=== PATIENT | male | born 1990 | race Caucasian/White ===

== ENCOUNTER 2016-12-27 19:14 | Emergency (ER) | payer MEDICAID ==
[~2016-12-27] VITALS: Ht 182.9 cm; Wt 66.7 kg
[~2016-12-27 19:14] MED LIST: NKM
[2016-12-27 19:35] VITALS: BP 131/86
[2016-12-27] MEDS ORDERED: ZOFRAN ODT4 MG ORAL (19:43)
[2016-12-27] MEDS ORDERED: PEPCID40 MG PO (19:43)
[2016-12-27] MEDS ORDERED: Lidocaine 2% Visc 15ml soln ORAL ONE (19:45)
[2016-12-27] MEDS ORDERED: Mylanta II UD 30ml ORAL ONE (19:45)
[2016-12-27 20:05] VITALS: BP 131/86
--- NOTE | 2017-01-12 15:27 | Emergency Room Report ---
History of Present Illness General Chief Complaint: Abdominal Pain Source: Patient Present Illness HPI 26YOM with bloating, abd cramps, nausea for 2 days Denies alvino abd pain,vomiting, diarrhea, fever/chills, urinary complaints Denies previous surgery Feels well otherwise No other medical complaints Allergies: Coded Allergies: SULFAMETHOXAZOLE (Unverified Allergy, Unknown, 09/27/15) TRIMETHOPRIM (Unverified Allergy, Unknown, 09/27/15) Patient History Past Medical History: none Past Surgical History: none Pertinent Family History: none Social History: Denies: smoking, alcohol use, drug use Immunizations: UTD Reviewed Nursing Documentation: PMH: Agreed, PSxH: Agreed Nursing Documentation-PMH Past Medical History: No Stated History Review of Systems All Other Systems: negative except mentioned in HPI Physical Exam Vital Signs Date Time Temp Pulse Resp B/P (MAP) Pulse Ox O2 Delivery O2 Flow Rate FiO2 12/27/16 19:19 98.4 72 18 131/86 98 Room Air Sp02 EP Interpretation: reviewed, normal General Appearance: normal inspection, well appearing, no apparent distress, alert, GCS 15, non-toxic Head: normocephalic, atraumatic Eyes: bilateral eye PERRL, bilateral eye EOMI ENT: normal ENT inspection, hearing grossly normal, normal voice Neck: normal inspection, full range of motion, supple, no bony tend Respiratory: normal inspection, lungs clear, normal breath sounds, no respiratory distress, no retraction, no wheezing Cardiovascular #1: regular rate, rhythm, no edema Gastrointestinal: normal inspection, normal bowel sounds, non tender, soft, no mass, no guarding, no hernia Genitourinary: no CVA tenderness Musculoskeletal: normal inspection, back normal, normal range of motion, Will' s Sign negative Neurologic: normal inspection, alert, responsive, speech normal Psychiatric: normal inspection, judgement/insight normal, mood/affect normal Skin: normal inspection, normal color, no rash Medical Decision Making Diagnostic Impression: Primary Impression: Viral illness ER Course 26YOM with viral illness Non-tender abdomen on serial exam Improved with GI cocktail Rx pepcid Close PMD followup DC home Last Vital Signs Date Time Temp Pulse Resp B/P (MAP) Pulse Ox O2 Delivery O2 Flow Rate FiO2 12/27/16 20:05 98.4 72 18 131/86 98 Room Air Status: improved Disposition: HOME, SELF-CARE Condition: Improved Scripts Famotidine (PEPCID) 40 Mg Tablet 40 MG PO DAILY for 7 Days, #14 TAB 0 Refills Prov: ARNAUD LYN M.D. 12/27/16 Ondansetron Odt* (ZOFRAN ODT*) 4 Mg Tab.rapdis 4 MG ORAL Q12H Y for Nausea & Vomiting for 7 Days, #14 TAB 0 Refills Prov: ARNAUD LYN M.D. 12/27/16 Referrals: [facility],REFERRING (PCP) Patient Instructions: Viral Gastroenteritis, Adult Additional Instructions: - Drink water/misbah sveta ONLY today - Start bland food tomorrow, crackers, chicken broth ONLY until you feel completel better - Take Pepcid 40mg each morning for 7 days or until you feel better - Take zofran as needed for nausea - Follow up with your PRIMARY DOCTOR in 2-3 days as needed - Return to ER for severe abdominal pain located on ONE side of your abdomen, fever/chills, vomiting that do NOT resolve with medication ARNAUD LYN M.D. Jan 12, 2017 15:27
== END 2016-12-27 20:05 | disposition home or self-care (01) ==
LOC: EMR 19:56
DX: B34.9 Viral infection, unspecified (principal); R11.0 Nausea; Z88.2 Allergy status to sulfonamides
CPT/HCPCS: 99283

== ENCOUNTER 2016-12-29 15:15 | Emergency (ER) | payer MEDICAID ==
[~2016-12-29] VITALS: Ht 182.9 cm; Wt 68.0 kg
[~2016-12-29 15:15] MED LIST changes: +PEPCID40 MG PO; +ZOFRAN ODT4 MG ORAL
[2016-12-29 15:26] VITALS: BP 134/86
--- NOTE | 2016-12-29 15:49 | Emergency Room Report ---
History of Present Illness General Chief Complaint: Abdominal Pain Source: Patient Present Illness HPI 26-year-old male presents to the emergency department complaining of 8/10 in severity crampy her lower midline abdominal pain that he reports is worse after urinating, localized and does not radiate. Patient denies swelling, dysuria, hematuria, fevers, chills or back pain. Patient reports mild constipation last bowel movement was yesterday however he reports moderate straining. Patient states that approximately one week ago he was diagnosed with viral gastroenteritis. He denies nausea, vomiting, diarrhea, blood in the stools are dark tarry stools. he denies testicular pain/swelling, penile lesions or penile discharge. Denies recent unprotected intercourse or possible exposure to STI. Denies rashes or swollen tender lymph nodes. Allergies: Coded Allergies: SULFAMETHOXAZOLE (Unverified Allergy, Unknown, 09/27/15) TRIMETHOPRIM (Unverified Allergy, Unknown, 09/27/15) Patient History Past Medical History: see triage record Past Surgical History: none Pertinent Family History: none Immunizations: UTD Reviewed Nursing Documentation: PMH: Agreed, PSxH: Agreed Nursing Documentation-PMH Past Medical History: No Stated History Review of Systems All Other Systems: negative except mentioned in HPI Physical Exam Vital Signs Date Time Temp Pulse Resp B/P (MAP) Pulse Ox O2 Delivery O2 Flow Rate FiO2 12/29/16 15:20 97.9 83 18 134/86 100 Room Air Sp02 EP Interpretation: reviewed, normal General Appearance: no apparent distress, alert, GCS 15, non-toxic Head: normocephalic, atraumatic Eyes: bilateral eye normal inspection, bilateral eye PERRL ENT: hearing grossly normal, normal voice Neck: full range of motion Respiratory: lungs clear, normal breath sounds, speaking full sentences Cardiovascular #1: regular rate, rhythm Gastrointestinal: normal bowel sounds, non tender - mild lower middle abdominal TTP on exam, no RLQ tenderness. no LAD, soft, no guarding Rectal: deferred Genitourinary: normal inspection, no CVA tenderness, penis normal, scrotum normal Musculoskeletal: back normal, gait/station normal, normal range of motion, non- tender Neurologic: alert, oriented x3, responsive, motor strength/tone normal, sensory intact, speech normal Skin: normal color, no rash, warm/dry, well hydrated Lymphatic: no adenopathy Medical Decision Making PA Attestation Dr. Mills is my supervising Physician whom patient management has been discussed with. Diagnostic Impression: Primary Impression: UTI (urinary tract infection) Qualified Codes: N30.00 - Acute cystitis without hematuria ER Course 26-year-old male presents to the emergency department complaining of 8/10 in severity crampy her lower midline abdominal pain that he reports is worse after urinating, localized and does not radiate. Patient denies swelling, dysuria, hematuria, fevers, chills or back pain. Patient reports mild constipation last bowel movement was yesterday however he reports moderate straining. Patient states that approximately one week ago he was diagnosed with viral gastroenteritis. He denies nausea, vomiting, diarrhea, blood in the stools are dark tarry stools. he denies testicular pain/swelling, penile lesions or penile discharge. Denies recent unprotected intercourse or possible exposure to STI. Denies rashes or swollen tender lymph nodes. Ddx considered but are not limited to Diverticulitis, acute appy, diarrhea,UC, PUD, GE, pancreatitis, kidney stone, UTI Vital signs: are WNL, pt. is afebrile H&PE are most consistent with abdominal pain , no clinical evidence to suggest acute abdomen, or infection. ORDERS: -UA: few bacteria in the presence of elevated leuks and RBC's, with no squamous epithelial cells, consistent with cystitis and UTI. ED INTERVENTIONS: -declines prophylactic treatment for G & C/urethritis. -d/w pt. that he will be treated as an outpatient, and to follow up with PMD in 3-5 days. pt. given ED return precautions for worsening or new symptoms. DISCHARGE: At this time pt. is stable for d/c to home. Will provide printed patient care instructions, and any necessary prescriptions. Care plan and follow up instructions have been discussed with the patient prior to discharge. Labs Test 12/29/16 15:55 Urine Color Yellow Urine Appearance Clear Urine pH 6.5 (4.5-8.0) Urine Specific [place] 1.010 (1.005-1.035) Urine Protein 1+ (NEGATIVE) Urine Glucose (UA) Negative (NEGATIVE) Urine Ketones 4+ (NEGATIVE) Urine Occult Blood Negative (NEGATIVE) Urine Nitrite Negative (NEGATIVE) Urine Bilirubin Negative (NEGATIVE) Urine Urobilinogen 1 MG/DL (0.0-1.0) Urine Leukocyte Esterase 1+ (NEGATIVE) Urine RBC 0-2 /HPF (0 - 0) Urine WBC 2-4 /HPF (0 - 0) Urine Squamous Epithelial Cells None /LPF (NONE/OCC) Urine Bacteria Few /HPF (NONE) Last Vital Signs Date Time Temp Pulse Resp B/P (MAP) Pulse Ox O2 Delivery O2 Flow Rate FiO2 12/29/16 15:26 97.9 18 134/86 100 Room Air 12/29/16 15:20 83 Disposition: HOME, SELF-CARE Condition: Stable Scripts Phenazopyridine Hcl* (PYRIDIUM*) 200 Mg Tablet 200 MG ORAL THREE TIMES A DAY for 3 Days, #9 TAB 0 Refills Prov: Jemma Pascual 12/29/16 Cephalexin* (KEFLEX*) 500 Mg Capsule 500 MG ORAL EVERY 12 HOURS for 7 Days, #14 CAP 0 Refills Prov: Jemma Pascual 12/29/16 Patient Instructions: Urinary Tract Infection, [id number] Additional Instructions: Take medications as directed. Follow up with a Primary Care Provider in 3-5 days, even if your symptoms have resolved. --Please review list of primary care clinics, if you do not already have a primary care provider Return sooner to ED if new symptoms occur, or current symptoms become worse. Pyridium will cause your urine to change color (Red/[place]), this is a normal side effect of the medication. - Please note that this Emergency Department Report was dictated using [employer] storage clerk technology software, occasionally this can lead to erroneous entry secondary to interpretation by the dictation equipment. Jemma Pascual Dec 29, 2016 15:49
[2016-12-29 16:17] LABS: APPEARANCE,URINE CLEAR; KETONES,URINE 4+ (NEGATIVE); LEUKOCYTE ESTERASE ,URINE 1+ (NEGATIVE); NITRITE,URINE NEGATIVE (NEGATIVE); PH,URINE 6.5 (4.5-8.0); PROTEIN,URINE 1+ (NEGATIVE); UROBILINOGEN,URINE 1 MG/DL (0.0-1.0)
[2016-12-29 16:48] LABS: RBC,URINE 0-2 /HPF (0 - 0)
[2016-12-29 16:49] LABS: BACTERIA,URINE FEW /HPF
[2016-12-29] MEDS ORDERED: CEPHALEXIN500 MG ORAL (16:54)
[2016-12-29] MEDS ORDERED: PHENAZOPYRIDIN200 MG ORAL (16:54)
[2016-12-29 17:05] VITALS: BP 135/78
[2016-12-29 19:57] VITALS: BP 134/86
== END 2016-12-29 17:08 | disposition home or self-care (01) ==
LOC: EMR 16:00
DX: N39.0 Urinary tract infection, site not specified (principal); Z88.2 Allergy status to sulfonamides; Z88.1 Allergy status to other antibiotic agents
CPT/HCPCS: 81003; 99284

== ENCOUNTER 2017-04-01 20:14 | Emergency (ER) | payer MEDICAID ==
[~2017-04-01] VITALS: Ht 182.9 cm; Wt 68.0 kg
[~2017-04-01 20:14] MED LIST changes: +CEPHALEXIN500 MG ORAL; +PHENAZOPYRIDIN200 MG ORAL
[2017-04-01 21:10] LABS: APPEARANCE,URINE CLEAR; BILIRUBIN, URINE NEGATIVE (NEGATIVE); COLOR,URINE PALE YELLOW; GLUCOSE, URINE (UA) NEGATIVE (NEGATIVE); KETONES,URINE NEGATIVE (NEGATIVE); LEUKOCYTE ESTERASE ,URINE 2+ (NEGATIVE); NITRITE,URINE NEGATIVE (NEGATIVE); PH,URINE 6.5 (4.5-8.0); PROTEIN,URINE NEGATIVE (NEGATIVE); UROBILINOGEN,URINE NORMAL MG/DL (0.0-1.0)
[2017-04-01] MEDS ORDERED: ROBAXIN-750750 MG PO (21:19)
[2017-04-01] MEDS ORDERED: IBUPROFEN600 MG ORAL (21:19)
[2017-04-01] MEDS ORDERED: KEFLEX500 MG ORAL (21:28)
[2017-04-01 21:58] VITALS: BP 111/76
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
== END 2017-04-01 21:58 | disposition home or self-care (01) ==
LOC: EMR 21:47
DX: N39.0 Urinary tract infection, site not specified (principal); M54.6 Pain in thoracic spine; R21 Rash and other nonspecific skin eruption; Z88.2 Allergy status to sulfonamides
CPT/HCPCS: 81001; 87086; 99284

== ENCOUNTER 2017-10-03 13:18 | Emergency (ER) | payer MEDICAID ==
[~2017-10-03] VITALS: Ht 182.9 cm; Wt 68.5 kg
[~2017-10-03 13:18] MED LIST changes: +IBUPROFEN600 MG ORAL; +KEFLEX500 MG ORAL; +ROBAXIN-750750 MG PO
[2017-10-03] MEDS ORDERED: Azithromycin 250mg tab ORAL ONE (13:45)
[2017-10-03] MEDS ORDERED: Lidocaine 1% MPF 10mg/ml 5ml INJ ONE (13:45)
[2017-10-03] MEDS: Phenazopyridine 200mg tab ORAL ONE ×2 (14:09→14:12)
--- NOTE | 2017-10-03 14:38 | Emergency Room Report ---
History of Present Illness General Chief Complaint: Male Urogenital Problems Source: Patient Present Illness HPI 27-year-old male presents to the emergency department complaining of suprapubic burning sensation with intermittent low back cramping presenting several days after having unprotected intercourse. Patient denies penile discharge he denies testicular pain or tenderness. Patient denies external genital lesions, swollen tender lymph nodes, joint pain, nausea, vomiting, fevers chills. Patient denies eye symptoms. Patient would like to be treated for STDs. Patient denies constipation or diarrhea he denies trauma or fall. Reports significant urinary urgency and frequency he denies hematuria or dysuria. Allergies: Coded Allergies: SULFAMETHOXAZOLE (Unverified Allergy, Unknown, 09/27/15) TRIMETHOPRIM (Unverified Allergy, Unknown, 09/27/15) Patient History Past Medical History: see triage record Past Surgical History: none Pertinent Family History: none Reviewed Nursing Documentation: PMH: Agreed; PSxH: Agreed Nursing Documentation-PMH Past Medical History: No History, Except For Review of Systems All Other Systems: negative except mentioned in HPI Physical Exam Vital Signs Date Time Temp Pulse Resp B/P (MAP) Pulse Ox O2 Delivery O2 Flow Rate FiO2 10/03/17 13:23 98.0 78 16 132/84 98 Room Air 98.1 Sp02 EP Interpretation: reviewed, normal General Appearance: no apparent distress, alert, GCS 15, non-toxic Head: normocephalic, atraumatic ENT: hearing grossly normal, normal voice Neck: full range of motion Respiratory: lungs clear, normal breath sounds, speaking full sentences Cardiovascular #1: regular rate, rhythm Gastrointestinal: normal bowel sounds, non tender, soft Rectal: deferred Genitourinary: normal inspection, no CVA tenderness, deferred - genital exam deferred by pt. reports no d/c, lesions or LAD Musculoskeletal: back normal, gait/station normal, normal range of motion, non- tender Neurologic: alert, oriented x3, responsive, motor strength/tone normal, sensory intact, normal gait, speech normal, grossly normal Psychiatric: judgement/insight normal Skin: normal color, no rash, warm/dry, well hydrated Medical Decision Making PA Attestation Dr. Martin is my supervising Physician whom patient management has been discussed with. Diagnostic Impression: Primary Impression: Contact with or exposure to venereal diseases Additional Impression: Urinary frequency ER Course 27-year-old male presents to the emergency department complaining of suprapubic burning sensation with intermittent low back cramping presenting several days after having unprotected intercourse. Patient denies penile discharge he denies testicular pain or tenderness. Patient denies external genital lesions, swollen tender lymph nodes, joint pain, nausea, vomiting, fevers chills. Patient denies eye symptoms. Patient would like to be treated for STDs. Patient denies constipation or diarrhea he denies trauma or fall. Reports significant urinary urgency and frequency he denies hematuria or dysuria. Ddx considered but are not limited to UTi , Urethritis, LGV, STI, Stone, Cystitis, prostatitis Vital signs: are WNL, pt. is afebrile H&PE are most consistent with Urethritis ORDERS: - UA :Unremarkable ED INTERVENTIONS: -250mg Rocephin IM -1 Gram Azithromycin PO DISCHARGE: At this time pt. is stable for d/c to home. Will provide printed patient care instructions, and any necessary prescriptions. Care plan and follow up instructions have been discussed with the patient prior to discharge. Labs Test 10/03/17 13:20 Urine Color Pale yellow Urine Appearance Clear Urine pH 6 (4.5-8.0) Urine Specific [place] 1.015 (1.005-1.035) Urine Protein Negative (NEGATIVE) Urine Glucose (UA) Negative (NEGATIVE) Urine Ketones Negative (NEGATIVE) Urine Occult Blood Negative (NEGATIVE) Urine Nitrite Negative (NEGATIVE) Urine Bilirubin Negative (NEGATIVE) Urine Urobilinogen Normal MG/DL (NORMAL) Urine Leukocyte Esterase Negative (NEGATIVE) Last Vital Signs Date Time Temp Pulse Resp B/P (MAP) Pulse Ox O2 Delivery O2 Flow Rate FiO2 10/03/17 13:23 98.0 78 16 132/84 98 Room Air 98.1 Disposition: HOME, SELF-CARE Condition: Stable Scripts Phenazopyridine Hcl* (PYRIDIUM*) 200 Mg Tablet 200 MG ORAL THREE TIMES A DAY for 3 Days, #9 TAB 0 Refills Prov: Jemma Pascual 10/03/17 Referrals: NOT CHOSEN [facility],REFERRING (PCP) Patient Instructions: Urethritis, Adult Additional Instructions: Take medications as directed. Pyridium will cause your urine to change color (Red/[place]), this is a normal side effect of the medication. Follow up with a Primary Care Provider in 3-5 days, even if your symptoms have resolved. --Please review list of primary care clinics, if you do not already have a primary care provider Return sooner to ED if new symptoms occur, or current symptoms become worse. - Please note that this Emergency Department Report was dictated using [employer]HealthHomecable inspector technology software, occasionally this can lead to erroneous entry secondary to interpretation by the dictation equipment. Jemma Pascual Oct 03, 2017 14:38
[2017-10-03 14:39] LABS: APPEARANCE,URINE CLEAR; BILIRUBIN, URINE NEGATIVE (NEGATIVE); COLOR,URINE PALE YELLOW; GLUCOSE, URINE (UA) NEGATIVE (NEGATIVE); KETONES,URINE NEGATIVE (NEGATIVE); LEUKOCYTE ESTERASE ,URINE NEGATIVE (NEGATIVE); NITRITE,URINE NEGATIVE (NEGATIVE); PH,URINE 6 (4.5-8.0); PROTEIN,URINE NEGATIVE (NEGATIVE); UROBILINOGEN,URINE NORMAL (NORMAL)
[2017-10-03] MEDS ORDERED: PHENAZOPYRIDIN200 MG ORAL (14:39)
[2017-10-03 14:45] VITALS: BP 132/84
== END 2017-10-03 14:50 | disposition home or self-care (01) ==
LOC: EMR 13:58
DX: R35.0 Frequency of micturition (principal); Z20.2 Contact with and (suspected) exposure to infections with a predominantly sexual mode of transmission; R39.15 Urgency of urination; Z88.1 Allergy status to other antibiotic agents; Z88.2 Allergy status to sulfonamides
CPT/HCPCS: 81003; 96372; 99283; J0696; Q0144

== ENCOUNTER 2018-03-23 12:24 | Emergency (ER) | payer MEDICAID ==
[~2018-03-23] VITALS: Ht 180.3 cm; Wt 68.0 kg
--- NOTE | 2018-03-23 12:37 | NUR ---
ED Nurse Note: patient came into ED concerned about his discomfort while urination. Patient denies any lesion. Patient had oral sex last Tuesday and reported that dysuria started 2 days ago.
[2018-03-23 12:39] VITALS: BP 132/96
--- NOTE | 2018-03-23 12:46 | NUR ---
ED Nurse Note: urine collected and sent down to lab
[2018-03-23 12:52] LABS: APPEARANCE,URINE CLEAR; BILIRUBIN, URINE NEGATIVE (NEGATIVE); COLOR,URINE PALE YELLOW; GLUCOSE, URINE (UA) NEGATIVE (NEGATIVE); KETONES,URINE NEGATIVE (NEGATIVE); LEUKOCYTE ESTERASE ,URINE NEGATIVE (NEGATIVE); NITRITE,URINE NEGATIVE (NEGATIVE); PH,URINE 7 (4.5-8.0); PROTEIN,URINE NEGATIVE (NEGATIVE); UROBILINOGEN,URINE NORMAL MG/DL (0.0-1.0)
[2018-03-23] MEDS ORDERED: Azithromycin 250mg tab ORAL ONE (13:15)
[2018-03-23] MEDS ORDERED: Lidocaine 1% MPF 10mg/ml 5ml INJ ONE (13:15)
--- NOTE | 2018-03-23 13:30 | NUR ---
ED Nurse Note: rocephin IM given at left deltoid.
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
--- NOTE | 2018-03-23 13:50 | NUR ---
ELOPEMENT: patient eloped. he is not found in his room. about 5 minutes ago, patient came to the nurse and asked when can he be discharged, RN explained that further instructions and discharge paper will be given to him shortly. RN went into the room but patient was not found. notified Dr. Bee, patient left department without discharge instruction/paper.
[2018-03-23 16:26] VITALS: BP 132/96
== END 2018-03-23 16:27 | disposition home or self-care (01) ==
LOC: EMR 12:45
DX: Z20.2 Contact with and (suspected) exposure to infections with a predominantly sexual mode of transmission (principal); Z88.2 Allergy status to sulfonamides; R36.9 Urethral discharge, unspecified
CPT/HCPCS: 81003; 96372; 96374; 99284; J0696; Q0144

== ENCOUNTER 2019-03-05 20:10 | Emergency (ER) | payer SELFPAY ==
[~2019-03-05] VITALS: Ht 182.9 cm; Wt 68.0 kg
[2019-03-05 20:24] VITALS: BP 140/80
--- NOTE | 2019-03-05 20:24 | NUR ---
ED Nurse Note: PT walked in to ED requesting for STI examination. pt also has pain to lower back area x 3 days. pt was recently treated for chlamydia
--- NOTE | 2019-03-05 20:37 | Emergency Room Report ---
History of Present Illness General Chief Complaint: Male Urogenital Problems Source: Patient Present Illness HPI 29 YO male presents to the emergency department complaining of 6 out of 10 severity in addition to left-sided low back pain x3 days. Patient reports recent exposure to chlamydia again. Patient states his symptoms are consistent with how his symptoms were for chlamydia presented last week. Patient states that he took his treatment however he had sexual intercourse with his partner whom continues to have symptoms. He denies rashes, genital lesions, testicular pain or swelling, swollen tender lymph nodes, joint pain or abdominal pain. He denies hematuria and he denies penile discharge at this time. Denies appreciable trauma or fall. Denies strenuous activity. PT. requesting STI tx again. Allergies: Coded Allergies: SULFAMETHOXAZOLE (Unverified Allergy, Unknown, 09/27/15) TRIMETHOPRIM (Unverified Allergy, Unknown, 09/27/15) Patient History Past Medical History: see triage record Past Surgical History: none Pertinent Family History: none Reviewed Nursing Documentation: PMH: Agreed; PSxH: Agreed Nursing Documentation-PMH Past Medical History: No History, Except For Review of Systems All Other Systems: negative except mentioned in HPI Physical Exam Vital Signs Date Time Temp Pulse Resp B/P (MAP) Pulse Ox O2 Delivery O2 Flow Rate FiO2 03/05/19 20:19 98.2 86 14 143/84 (103) 97 Room Air Sp02 EP Interpretation: reviewed, normal General Appearance: no apparent distress, alert, GCS 15, non-toxic Head: normocephalic, atraumatic Eyes: bilateral eye normal inspection, bilateral eye PERRL ENT: hearing grossly normal, normal voice Neck: full range of motion Respiratory: lungs clear, normal breath sounds, speaking full sentences Cardiovascular #1: regular rate, rhythm, no edema Gastrointestinal: normal bowel sounds, non tender, soft Genitourinary: normal inspection, no CVA tenderness, other - penile exam deferred by pt. Musculoskeletal: back normal, normal range of motion, gait/station normal, non- tender Neurologic: alert, motor strength/tone normal, oriented x3, sensory intact, responsive, speech normal Psychiatric: judgement/insight normal Skin: no rash Lymphatic: no adenopathy Medical Decision Making PA Attestation Dr. Robles is my supervising Physician whom patient management has been discussed with. Diagnostic Impression: Primary Impression: Contact with or exposure to venereal diseases ER Course 29 YO male presents to the emergency department complaining of 6 out of 10 severity in addition to left-sided low back pain x3 days. Patient reports recent exposure to chlamydia again. Patient states his symptoms are consistent with how his symptoms were for chlamydia presented last week. Patient states that he took his treatment however he had sexual intercourse with his partner whom continues to have symptoms. He denies rashes, genital lesions, testicular pain or swelling, swollen tender lymph nodes, joint pain or abdominal pain. He denies hematuria and he denies penile discharge at this time. Denies appreciable trauma or fall. Denies strenuous activity. PT. requesting STI tx again. Ddx considered but are not limited to UTi , Urethritis, LGV, STI, Stone, Cystitis, prostatitis, Muscle strain, MSK injury just to name a few. Vital signs: are WNL, pt. is afebrile H&PE are most consistent with Urethritis ORDERS: - none, pt. requesting clinical dx and tx. ED INTERVENTIONS: -250mg Rocephin IM --Azithromycin 1g PO DISCHARGE: At this time pt. is stable for d/c to home. Will provide printed patient care instructions, and any necessary prescriptions. Care plan and follow up instructions have been discussed with the patient prior to discharge. Last Vital Signs Date Time Temp Pulse Resp B/P (MAP) Pulse Ox O2 Delivery O2 Flow Rate FiO2 03/05/19 20:19 98.2 86 14 143/84 (103) 97 Room Air Disposition: HOME, SELF-CARE Condition: Stable Patient Instructions: Urethritis, Adult Additional Instructions: Take medications as directed. Follow up with a Primary Care Provider in 3-5 days, even if your symptoms have resolved. Return sooner to ED if new symptoms occur, or current symptoms become worse. - Please note that this Emergency Department Report was dictated using [employer] ref[employer]ing operator technology software, occasionally this can lead to erroneous entry secondary to interpretation by the dictation equipment. Jemma Pascual Mar 05, 2019 20:37
[2019-03-05] MEDS ORDERED: Lidocaine 1% MPF 10mg/ml 5ml INJ ONE (20:45)
[2019-03-05] MEDS ORDERED: Azithromycin 250mg tab ORAL ONE (20:45)
[2019-03-05 20:46] VITALS: BP 132/75
--- NOTE | 2019-03-05 20:46 | NUR ---
ER DISCHARGE NOTE: Patient is cleared to be discharged per ERMD, pt is aox4, on room air, with stable vital signs. pt was given dc and prescription instructions, pt was able to verbalize understanding, pt id band removed without complications. pt is able to ambulate with steady gait. pt took all belongings.
== END 2019-03-05 20:46 | disposition home or self-care (01) ==
LOC: EMR 20:46
DX: M54.5 Low back pain (principal); Z20.2 Contact with and (suspected) exposure to infections with a predominantly sexual mode of transmission; Z88.2 Allergy status to sulfonamides
CPT/HCPCS: 96372; 96374; 99284; J0696